=== PATIENT | female | born 1965 | race Caucasian/White ===

== ENCOUNTER 2020-07-26 12:54 | Emergency (ER) | payer BC ==
[2020-07-26 13:19] VITALS: BP 132/73
[2020-07-26] MEDS ORDERED: HYDROCODONE/ACETAMINOPHEN 5-325 MG TABLET PO ONE (13:19)
--- NOTE | 2020-07-26 13:21 | ER Document Report ---
ED Extremity Problem, Upper - General Chief Complaint: Arm Injury Stated Complaint: FALL/RIGHT ARM PAIN Time Seen by Provider: 07/26/20 13:13 Primary Care Provider: SAIRA STATON JR, DO [ACTIVE PROVISIONAL STAFF] - 07/28/20 (for ortho follow u p) - [facility] Notes: 54-year-old female to the emergency department with complaints of right wrist, elbow, shoulder pain as well as right foot pain that began last night after she tripped and fell coming into the home where she is staying. She states she is visiting her son and then got for dinner. She states she was walking into the place where they were staying but did not see the steps. She states she fell down onto the right arm. She states that her wrist went underneath her and then she landed onto the forearm and elbow. She has an abrasion to her right elbow. She states she is up-to-date on her tetanus shot. She states that she has been icing the arm but she is not been able to really move it because it hurt so badly. She states that her right foot is also bruised and tender but she can move all of her toes. She denies any other symptoms. Denies loss of consciousness, headache, head injury, neck pain, back pain. - Related Data Allergies/Adverse Reactions: bupropion [From Zyban] Allergy (Verified 07/26/20 13:08) cefaclor [From Ceclor] Allergy (Verified 07/26/20 13:08) doxycycline Allergy (Verified 07/26/20 13:08) erythromycin base Allergy (Verified 07/26/20 13:08) adhesive tape Adverse Reaction (Verified 07/26/20 13:08) ibuprofen Adverse Reaction (Verified 07/26/20 13:08) morphine Adverse Reaction (Verified 07/26/20 13:08) Past Medical History - General Information source: Patient - Social History Smoking Status: Current Every Day Smoker Frequency of alcohol use: Occasional Drug Abuse: None Family History: Reviewed & Not Pertinent Review of Systems - Review of Systems Constitutional: denies: Chills, Fever EENT: No symptoms reported. denies: Nose discharge, Throat pain Cardiovascular: denies: Chest pain, Syncope, Dizziness, Lightheaded Respiratory: denies: Cough, Short of breath Gastrointestinal: denies: Abdominal pain, Diarrhea, Nausea, Vomiting Genitourinary: No symptoms reported Musculoskeletal: See HPI, Joint pain, Joint swelling Skin: Other - Abrasion to the right elbow Neurological/Psychological: denies: Weakness, Numbness, Tingling -: Yes All other systems reviewed and negative Physical Exam - Vital signs Vitals: Temp Pulse Resp BP Pulse Ox 98.3 F 62 16 132/73 H 97 07/26/20 13:17 07/26/20 13:17 07/26/20 13:17 07/26/20 13:17 07/26/20 13:17 Interpretation: Normal - General General appearance: Appears well, Alert In distress: Mild Notes: Guarding the right arm, mild pain distress - HEENT Head: Normocephalic, Atraumatic Eyes: Normal Pupils: PERRL Neck: Normal, Supple - Respiratory Respiratory status: No respiratory distress Chest status: No: Pain on movement, Accessory muscle use Breath sounds: Normal. No: Rales, Rhonchi, Wheezing Chest palpation: Normal - Cardiovascular Rhythm: Regular Heart sounds: Normal auscultation Murmur: No - Abdominal Inspection: Normal Distension: No distension Bowel sounds: Normal Tenderness: Nontender Organomegaly: No organomegaly - Extremities Wrist: Tender - There is tenderness to palpation over the right wrist with noted edema. There is no gross deformity. Patient cannot move the wrist due to pain. She also has tenderness to palpation over the right elbow with noted abrasion. Again no gross deformity. Mild tenderness to palpation over the right shoulder. She can nearly completely extend the right elbow but does have increasing pain. She can lift the arm without a lot of difficulty at the level of the shoulder. Handgrip is about 4/5 in the right hand due to pain. Radial pulses are intact and equal. There is no snuffbox tenderness. Cap refill is less than 2 seconds - Neurological Neuro grossly intact: Yes Cognition: Normal Orientation: AAOx4 [place] Coma Scale Eye Opening: Spontaneous Teresita Coma Scale Verbal: Oriented [place] Coma Scale Motor: Obeys Commands [place] Coma Scale Total: 15 Speech: Normal Motor strength normal: LUE, RUE, LLE, RLE Sensory: Normal - Psychological Associated symptoms: Normal affect, Normal mood - Skin Skin Temperature: Warm Skin Moisture: Dry Skin Color: Normal Course - Re-evaluation Re-evalutation: 07/26/20 14:54 Impression: Right radius fracture. Nondisplaced. Will place in a volar splint. Have her follow-up with orthopedist. Patient is not from here and I will give her a local orthopedist but if she goes home prior to being able to follow-up with orthopedist I have asked her to follow-up with a local orthopedist in [facility]. Will send home with pain medicine. Patient agrees with the plan. - Vital Signs Vital signs: Temp Pulse Resp BP Pulse Ox 98.3 F 62 16 132/73 H 97 07/26/20 13:17 07/26/20 13:17 07/26/20 13:17 07/26/20 13:17 07/26/20 13:17 - Diagnostic Test Radiology reviewed: Pending, Image reviewed, Reports reviewed Procedures - Immobilization Right Wrist Time completed: 14:55 Pre-Proc Neuro Vasc Exam: Normal Immobilizer type: Volar splint Performed by: PCT Post-Proc Neuro Vasc Exam: Normal Alignment checked and good: Yes Discharge - Discharge Clinical Impression: Fall Qualifiers: Encounter type: initial encounter Qualified Code(s): W19.XXXA - Unspecified fall, initial encounter Wrist fracture Qualifiers: Encounter type: initial encounter Fracture type: closed Laterality: right Qualified Code(s): S62.101A - Fracture of unspecified carpal bone, right wrist, initial encounter for closed fracture Elbow strain Qualifiers: Encounter type: initial encounter Laterality: right Qualified Code(s): S46.911A - Strain of unspecified muscle, fascia and tendon at shoulder and upper arm level, right arm, initial encounter Elbow abrasion Qualifiers: Encounter type: initial encounter Laterality: right Qualified Code(s): S50.311A - Abrasion of right elbow, initial encounter Right foot strain Qualifiers: Encounter type: initial encounter Qualified Code(s): S96.911A - Strain of unspecified muscle and tendon at ankle and foot level, right foot, initial encounter Condition: Stable Disposition: HOME, SELF-CARE Instructions: Fractured Radius ([facility]) Additional Instructions: Keep wrist splinted without fail until you follow-up with orthopedist. If you do not travel home this upcoming week please call the orthopedist listed to get definitive care for your wrist fracture. Ice, elevate the injured arm. Wear sling to aid in your comfort. Take medicine as prescribed. Prescriptions: Hydrocodone/Acetaminophen [Hutchinson 5-325 mg Tablet] 1 tab PO Q6H #12 tablet Forms: Return to Work Referrals: SAIRA STATON JR, DO [ACTIVE PROVISIONAL STAFF] - 07/28/20 (for ortho follow up)
--- NOTE | 2020-07-26 14:10 | RADIOLOGY REPORT (SQ) ---
EXAM DESCRIPTION: ELBOW RIGHT AP/LAT IMAGES COMPLETED DATE/TIME: 07/26/2020 2:01 pm REASON FOR STUDY: fall, right elbow pain COMPARISON: None. NUMBER OF VIEWS: Two views. TECHNIQUE: AP and lateral radiographic images acquired of the right elbow. LIMITATIONS: None. FINDINGS: MINERALIZATION: Normal. BONES: No acute fracture or dislocation. JOINT: No effusion. SOFT TISSUES: No soft tissue swelling. No radiopaque foreign body. IMPRESSION: No radiographic evidence for acute fracture at the right elbow. TECHNICAL DOCUMENTATION: JOB ID: [id number] 2010 [employer]- All Rights Reserved Reading location - IP/workstation name: [email or web address]
--- NOTE | 2020-07-26 14:13 | RADIOLOGY REPORT (SQ) ---
EXAM DESCRIPTION: FOOT RIGHT COMPLETE IMAGES COMPLETED DATE/TIME: 07/26/2020 2:01 pm REASON FOR STUDY: fall, foot pain COMPARISON: None. NUMBER OF VIEWS: Three views. TECHNIQUE: AP, lateral and oblique radiographic images acquired of the right foot. LIMITATIONS: None. FINDINGS: MINERALIZATION: Normal. BONES: No acute fracture or dislocation. SOFT TISSUES: No soft tissue swelling. No radiopaque foreign body. IMPRESSION: No radiographic evidence for acute fracture at the right foot. TECHNICAL DOCUMENTATION: JOB ID: [id number] [employer]- All Rights Reserved Reading location - IP/workstation name: [email or web address]
--- NOTE | 2020-07-26 14:16 | RADIOLOGY REPORT (SQ) ---
EXAM DESCRIPTION: WRIST RIGHT 3 VIEWS IMAGES COMPLETED DATE/TIME: 07/26/2020 2:01 pm REASON FOR STUDY: fall, right elbow wrist pain COMPARISON: None. NUMBER OF VIEWS: Three views. TECHNIQUE: AP, lateral, and oblique radiographic images acquired of the right wrist. LIMITATIONS: None. FINDINGS: MINERALIZATION: Normal. BONES: There is an acute, comminuted, impacted fracture at the distal radius with mild volar apex ang ulation. SOFT TISSUES: There is soft tissue swelling at the distal forearm. IMPRESSION: Acute fracture of the distal right radius with soft tissue swelling at the distal forear m. TECHNICAL DOCUMENTATION: JOB ID: [id number] 2010 [employer]- All Rights Reserved Reading location - IP/workstation name: [email or web address]
--- NOTE | 2020-07-26 14:17 | RADIOLOGY REPORT (SQ) ---
EXAM DESCRIPTION: SHOULDER RIGHT 2 OR MORE VIEWS IMAGES COMPLETED DATE/TIME: 07/26/2020 2:01 pm REASON FOR STUDY: fall, shoulder pain COMPARISON: None. NUMBER OF VIEWS: Three views. TECHNIQUE: Internal rotation, external rotation, and Y view images acquired of the right shoulder. LIMITATIONS: None. FINDINGS: MINERALIZATION: Normal. BONES: No acute fracture. JOINTS: No dislocation. VISUALIZED LUNGS AND RIBS: No pneumothorax. No displaced rib fracture. SOFT TISSUES: No radiopaque foreign body. IMPRESSION: No radiographic evidence for acute fracture or dislocation at the right shoulder. TECHNICAL DOCUMENTATION: JOB ID: [id number] 2010 [employer]- All Rights Reserved Reading location - IP/workstation name: [email or web address]
== END 2020-07-26 14:56 | disposition home or self-care (01) ==
LOC: ER 12:54
PROC: 2W3CX1Z Immobilization of Right Lower Arm using Splint (ICD-10-PCS; principal; 2020-07-26)
DX: S62.101A Fracture of unspecified carpal bone, right wrist, initial encounter for closed fracture (principal); S46.911A Strain of unspecified muscle, fascia and tendon at shoulder and upper arm level, right arm, initial encounter; S50.311A Abrasion of right elbow, initial encounter; S96.911A Strain of unspecified muscle and tendon at ankle and foot level, right foot, initial encounter; M79.601 Pain in right arm; M25.531 Pain in right wrist; M25.521 Pain in right elbow; M25.511 Pain in right shoulder; M79.671 Pain in right foot; W19.XXXA Unspecified fall, initial encounter; Z88.8 Allergy status to other drugs, medicaments and biological substances; Z88.1 Allergy status to other antibiotic agents; F17.200 Nicotine dependence, unspecified, uncomplicated
CPT/HCPCS: 99284